=== PATIENT | female | born 1995 ===

== ENCOUNTER 2024-05-11 16:38 | Emergency (ER) | payer SELFPAY ==
[~2024-05-11] VITALS: Ht 167.6 cm; Wt 81.0 kg
[2024-05-11 17:12] VITALS: O2SAT 99
[2024-05-11] MEDS: ACETAMINOPHEN 325MG TABLET PO ONE (20:21)
[2024-05-11] MEDS: LIDOCAINE 5% PATCH TOP SCH (20:24)
[2024-05-11] MEDS ORDERED: NAPR-1176 MT (20:39)
[2024-05-11] MEDS ORDERED: LIDO700A15 TP (20:39)
[2024-05-11 20:50] VITALS: BP 130/55; PULSE 85; RESP 18; TEMP 98.2
== END 2024-05-11 21:12 | disposition home or self-care (01) ==
LOC: ER 16:38
DX: M54.9 Dorsalgia, unspecified (principal); M54.2 Cervicalgia; V98.8XXA Other specified transport accidents, initial encounter; Y93.89 Activity, other specified; Y92.89 Other specified places as the place of occurrence of the external cause; Y99.8 Other external cause status
CPT/HCPCS: 99283